=== PATIENT | female | born 1995 | race Caucasian/White ===

== ENCOUNTER → 2022-04-30 | Outpatient (CLI) | payer BC ==
[2022-04-30 17:09] LABS: HCT 40.3 % (37.2-46.3); HGB 11.9 g/dL (12.0-15.0); MCH 31.2 pg (27.0-32.0); MCHC 29.5 g/dL (32.0-37.0); MCV 105.5 fL (80.0-97.0); Mean Platelet Volume 10.6 fL (9.5-12.2); NRBC Per 100 WBC 0 /100 WBCS (0.0-0.0); Platelet Count 286 X 10*3/uL (140-440); RBC 3.82 X 10*6/uL (4.10-5.20); RDW 12.5 % (11.5-14.5); WBC 4.68 X 10*3/uL (4.50-10.00)
[2022-04-30 17:32] LABS: Basophils # (A) 0.05 X 10*3/uL (0.00-0.10); Basophils % (A) 1.1 %; Eosinophils # (A) 0.15 X 10*3/uL (0.04-0.35); Eosinophils % (A) 3.2 %; Immature Grans, Automated 0.2 %; Lymphocytes # (A) 2.98 X 10*3/uL (0.90-5.00); Lymphocytes % (A) 63.7 %; Monocytes # (A) 0.39 X 10*3/uL (0.20-1.00); Monocytes % (A) 8.3 %; Neutrophils % (A) 23.5 %; RBC Morphology NORMAL
== END | disposition home or self-care (01) ==
LOC: LABPAT 10:19
PROVIDERS: ATTEND Obstetrics & Gynecology Obstetrics
DX: Z30.2 Encounter for sterilization (principal)
CPT/HCPCS: 85025

== ENCOUNTER 2022-05-09 07:36 | Day surgery (SDC) | payer BC ==
[2022-05-04 13:25] VITALS: BMI 18.3
[~2022-05-09 07:36] MED LIST: DEXAMETHASONE SOD PHOSPHATE 4 MG/ML 1 ML VIAL IV ONE; HYDROmorphone 0.5 MG/0.5 ML SYRINGE IVP PRN; LACTATED RINGERS 1,000 ML IV SCH; LIDOCAINE 1% (10MG/ML) FOR IV START INTRADERMA PRN; MIDAZOLAM 2 MG/2 ML VIAL IV PRN; ONDANSETRON 4 MG/2 ML VIAL IVP ONE; Pre Op ABX Message 1 EACH MISC MISCELLANE ONE
[2022-05-09] MEDS ORDERED: PROPOFOL 10 MG/ML 20 ML VIAL IV ONE (09:00)
[2022-05-09] MEDS ORDERED: MIDAZOLAM 2 MG/2 ML VIAL ONE (09:00)
[2022-05-09] MEDS ORDERED: LIDOCAINE 2% INJ 20 MG/ML (2 ML VIAL) ONE (09:00)
[2022-05-09] MEDS ORDERED: fentaNYL (PF) 50 MCG/ML 2 ML AMP ONE (09:00)
[2022-05-09] MEDS ORDERED: NEOSTIGMINE 1 MG/ML 10 ML VIAL ONE (09:00)
[2022-05-09] MEDS ORDERED: GLYCOPYRROLATE 0.2 MG/ML 2 ML VIAL ONE (09:00)
[2022-05-09] MEDS ORDERED: SUCCINYLCHOLINE CHLORIDE 200 MG/10 ML VIAL IV ONE (09:00)
[2022-05-09] MEDS ORDERED: KETOROLAC 15 MG/ML 1 ML VIAL ONE (09:00)
[2022-05-09] MEDS ORDERED: ROCURONIUM 10 MG/ML (5 ML VIAL) IV ONE (09:00)
[2022-05-09] MEDS ORDERED: LIDOCAINE URO-JET JELLY 2% 5 ML KIT URETHRAL ONE (09:22)
[2022-05-09] MEDS ORDERED: BUPIVACAINE (PF) 0.25% 30 ML VIAL SQ ONE ×2 (09:22)
--- NOTE | 2022-05-09 09:45 | P.OP ---
Date of Procedure: 05/09/22 Preoperative Diagnosis: Family planning, undesired fertility Postoperative Diagnosis: Same Procedure(s) Performed: Left endoscopic tubal ligation with Filshie clips Anesthesia: GETA Surgeon: Desire More Estimated Blood Loss (ml): 5 IV fluids (ml): 600 Urine output (ml): 150 Pathology: none sent Condition: stable Disposition: PACU Indications for Procedure: Patient request for permanent sterilization Operative Findings: Normal pelvic anatomy Description of Procedure: Patient was taken back to the operating suite where general anesthesia was obtained without difficulty by the anesthesia department. She was prepped and draped in normal sterile fashion in the dorsal lithotomy position. The speculum was placed the cervix is visualized and the anterior lip was grasped with single-tooth tenaculum. An acorn uterine macular was advanced into the cervix as a means to miniplate uterus throughout the procedure. I [place] catheter was then used to drain urine throughout the procedure. Attention was then turned the patient's abdomen where in the umbilical fold a small skin incision is made. The Veress needles and placed through the skin incision toward the abdominal cavity. Once the Veress needle was deemed to be Proper position with a drop of CO2 pressure with insufflation of CO2 gas CO2 insufflation was allowed to occur. At this time. Approximately 3 L of gas were used to obtain pneumoperitoneum. A 5 mm trocar was then placed through the skin incision and toward the pneumoperitoneum under direct visualization with the laparoscope. The above-noted findings are visualized. An additional port site is placed in the right midabdomen then and a 5 mm trocar and sleeve is placed under direct visualization. The Filshie clip applicator was then placed through the right-sided port and both clips were occluded. A complete cross section of the tubes were visualized upon conclusion. Pictures were taken and all instruments removed from the patient's abdomen. The skin incisions were closed with 4-0 Vicryl in a subcuticular fashion. Steri-Strips and sterile dressings were applied. All counts were noted be correct 2. Patient tolerated procedure well and was taken the recovery room awake in stable condition.
[2022-05-09 09:54] VITALS: TEMP 97.9
[2022-05-09 10:06] VITALS: RESP 16
[2022-05-09] MEDS ORDERED: LACTATED RINGERS 1,000 ML IV ONE (11:10)
[2022-05-09 11:27] VITALS: BP 120/75; PULSE 46
== END 2022-05-09 11:55 | disposition home or self-care (01) ==
LOC: OR 07:36
PROVIDERS: ATTEND Obstetrics & Gynecology Obstetrics
DX: Z30.2 Encounter for sterilization (principal); J45.909 Unspecified asthma, uncomplicated; Z79.899 Other long term (current) drug therapy; Z82.49 Family history of ischemic heart disease and other diseases of the circulatory system
CPT/HCPCS: 81025; 58671; J2250; J0330; J1100; J2710; J2405; J3010; J1885; J2704; J1170; J2001